=== PATIENT | male | born 1945 | race African-American/Black ===

== ENCOUNTER 2017-03-17 06:08 | Emergency (ER) | payer MEDICARE, BC ==
[~2017-03-17] VITALS: Ht 177.8 cm; Wt 83.5 kg
[2017-03-17 06:19] VITALS: BP 187/86
[2017-03-17] MEDS ORDERED: LIDOCAINE 2% JELLY 6ML IN APPLICATOR. MM ONE (06:30)
--- NOTE | 2017-03-17 06:35 | ED.ADGEN ---
Adult General Chief Complaint Chief Complaint: URINARY RETENTION HPI HPI Patient is a 71 year old man, with history of enlarged prostate who takes Flomax daily, with a previous episode of urinary retention 2 years ago that required Mcmullen catheter placement and follow-up with urology [facility], who presents to the emergency department with complaint of urinary retention. Denies any preceding hematuria or dysuria. No discharge or drainage. No pain in the penis. Patient states that his last void was at 12:30 last night, he states he is unable to go since that time, with only "a few drops". Patient complaining of abdominal pain and distention, denies any back pain, any fevers, any chills, any injuries, any weakness in this or tingling, this is last bowel was yesterday and was normal. No nausea or vomiting. Denies any other medical problems or complaints. No recent travel or surgery, no swelling extremities. No shortness of breath or chest pain. Review of Systems Review of Systems Constitutional: Denies fever or chills. [] Eyes: Denies change in visual acuity. [] HENT: Denies nasal congestion or sore throat. [] Respiratory: Denies cough or shortness of breath. [] Cardiovascular: Denies chest pain or edema. [] GI: Denies nausea, vomiting, bloody stools or diarrhea. [] Abdominal pain and distention. : Denies dysuria. Urinary retention. Musculoskeletal: Denies back pain or joint pain. [] Integument: Denies rash. [] Neurologic: Denies headache, focal weakness or sensory changes. [] Endocrine: Denies polyuria or polydipsia. [] Lymphatic: Denies swollen glands. [] Psychiatric: Denies depression or anxiety. [] Current Medications Current Medications Current Medications Medications (Trade) Dose Ordered Sig/Lilibeth Start Time Stop Time Status Last Admin Dose Admin Diazepam (Valium) 5 mg 1X ONCE 03/17/17 07:00 03/17/17 07:01 DC 03/17/17 06:57 5 MG Lidocaine HCl (Glydo (Lidocaine) Jelly) 1 marie 1X ONCE 03/17/17 06:30 03/17/17 06:31 DC 03/17/17 06:30 1 MARIE Allergies Allergies Allergies Coded Allergies Type Severity Reaction Last Updated Verified Penicillins Allergy Unknown 03/17/17 Yes Physical Exam Physical Exam Constitutional: Well developed, well nourished, no acute distress, non-toxic appearance. [] HENT: Normocephalic, atraumatic, bilateral external ears normal, oropharynx moist, no oral exudates, nose normal. [] Eyes: PERRLA, EOMI, conjunctiva normal, no discharge. [] Neck: Normal range of motion, no tenderness, supple, no stridor. [] Cardiovascular:Heart rate regular rhythm, no murmur, S1, S2, rubs or gallops. [] Lungs & Thorax: Bilateral breath sounds clear to auscultation, no wheezing, rhonchi, rales. No chest wall crepitus or tenderness. [] Abdomen: Bowel sounds normal, soft, abdominal distention, with tenderness in the suprapubic region, no masses, no pulsatile masses. [] Skin: Warm, dry, no erythema, no rash. [] Back: No tenderness, no CVA tenderness. [] Extremities: No tenderness, no cyanosis, no clubbing, ROM intact, no edema. [] Neurologic: Alert and oriented X 3, normal motor function, normal sensory function, no focal deficits noted. [] Psychologic: Affect normal, judgement normal, mood normal. [] Bladder scan: 706 mL/bladder. Current Patient Data Vital Signs Vital Signs Date Time Temp Pulse Resp B/P Pulse Ox O2 Delivery O2 Flow Rate FiO2 03/17/17 06:19 98.5 90 16 187/86 97 Room Air 98.5 Lab Values Laboratory Tests Test 03/17/17 06:58 03/17/17 07:15 POC Hemoglobin 16.7g/dL (14-18) POC Hematocrit 49% (37-52) POC Sodium 141mmol/L (135-145) POC Potassium 4.3mmol/L (3.5-5.0) POC Chloride 105mmol/L (98-110) POC Total CO2 24mmol/L (23-32) Anion Gap 17mmol/L (6-14) H POC Blood Urea Nitrogen 10mg/dL (8-26) POC Creatinine 0.8mg/dL (0.5-1.4) Glucose Level 99mg/dL (70-99) POC Ionized Calcium (Faisal) 1.22mmol/L (1.13-1.32) Urine Collection Type U cath Urine Color Yellow Urine Clarity Clear Urine pH 5.5 Urine Specific [place] <=1.005 Urine Protein Negativemg/dL (NEG-TRACE) Urine Glucose (UA) Negativemg/dL (NEG) Urine Ketones (Stick) Negativemg/dL (NEG) Urine Blood Large (NEG) Urine Nitrite Negative (NEG) Urine Bilirubin Negative (NEG) Urine Urobilinogen Dipstick 0.2mg/dL (0.2 mg/dL) Urine Leukocyte Esterase Negative (NEG) Urine RBC 11-20/HPF (0-2) Urine WBC Occ/HPF (0-4) Urine Squamous Epithelial Cells Occ/LPF Urine Bacteria Few/HPF (0-FEW) Urine Mucus Slight/LPF Laboratory Tests 03/17/17 06:58 EKG EKG Not indicated. [] Radiology/Procedures Radiology/Procedures [] Impressions: Bladder scanner: 706 mL in bladder Course & Med Decision Making Course & Med Decision Making Pertinent Labs and Imaging studies reviewed. (See chart for details) Patient does not recall the urologist he saw previously. Noted to have over 700 mL's of urine in the bladder, unsuccessful attempt at voiding in the ED. Urojet applied, initial attempts of Mcmullen catheter with coud failed, patient was given 5 mg of Valium, second attempt with daily was successful. Patient with drainage of over 700 mL of urine, with immediate improvement of his symptoms. I- STAT obtained, revealed a creatinine of 0.8, with a be out of 10, electrolytes within normal limits, hemoglobin of 16.7. Urinalysis revealed small amount of blood and bacteria, patient noted to have blood-tinged urine in Mcmullen bag, likely secondary to placement of catheter. I did speak to nurse for Dr. Bullard, we will initiate the patient on ciprofloxacin, 500 mg twice daily for 7 days, patient also be given a perception for Pyridium, instructed to follow-up with Dr. Bullard, to call the office today schedule an appointment. I did discuss this with the patient, who is in agreement with this plan. He is resting comfortably at this time, we did discuss concerning symptoms that would prompt return to the emergency department. Patient given clear and detailed instructions as stated, discharged home in stable condition with plan as above. Dragon Disclaimer Dragon Disclaimer This electronic medical record was generated, in whole or in part, using a voice recognition dictation system. Departure Impression: Primary Impression: Urinary retention Disposition: HOME, SELF-CARE Condition: IMPROVED Scripts Phenazopyridine Hcl (Pyridium)200 Mg [id number] Mg PO TID #9 TAB Prov:ROSENDA JONES DO 03/17/17 Ciprofloxacin Hcl (Cipro)500 Mg Tablet1 Tab PO BID #14 TAB Prov:ROSENDA JONES DO 03/17/17 ROSNEDA JONES DO Mar 17, 2017 06:35
[2017-03-17] MEDS ORDERED: DIAZEPAM 10 MG/2 ML DISP.SYRIN. IV ONE (07:00)
[2017-03-17 07:23] LABS: POTASSIUM ISTAT 4.3 mmol/L (3.5-5.0)
[2017-03-17 07:35] LABS: BILIRUBIN,URINE NEGATIVE (NEG); GLUCOSE,URINE NEGATIVE (NEG); NITRITE,URINE NEGATIVE (NEG); PH,URINE 5.5; PROTEIN,URINE NEGATIVE (NEG-TRACE); UROBILINOGEN,URINE 0.2 mg/dL (0.2 mg/dL)
[2017-03-17 07:45] LABS: BACTERIA,URINE FEW /HPF (0-FEW); SQUAMOUS EPITHELIAL CELL,UR OCC /LPF; WBC,URINE OCC /HPF (0-4)
[2017-03-17] MEDS ORDERED: CIPR500T94 PO (08:08)
[2017-03-17] MEDS ORDERED: PHEN-318 PO (08:08)
== END 2017-03-17 08:20 | disposition home or self-care (01) ==
LOC: ER 06:08
DX: R33.9 Retention of urine, unspecified (principal); Z88.0 Allergy status to penicillin
CPT/HCPCS: 51702; 80047; 81001; 96374; 99284; J3360

== ENCOUNTER 2017-03-17 18:53 | Emergency (ER) | payer MEDICARE, BC ==
[~2017-03-17] VITALS: Ht 177.8 cm; Wt 83.5 kg
[~2017-03-17 18:53] MED LIST: CIPR500T94 PO; PHEN-318 PO
[2017-03-17] MEDS ORDERED: LIDOCAINE 2% JELLY 6ML IN APPLICATOR. MM ONE (20:15)
[2017-03-17] MEDS ORDERED: DIAZEPAM 10 MG/2 ML DISP.SYRIN. IM ONE (20:15)
--- NOTE | 2017-03-17 20:28 | PHYS DOC ---
Past Medical History Past Medical History: Other Additional Past Medical Histor: enlarged prostate Past Surgical History: No Surgical History Alcohol Use: None Drug Use: None Adult General Chief Complaint Chief Complaint: BLOOD IN URINE HPI HPI Patient is a 71 year old male who presents with hematuria & urinary retention. The patient was seen here this morning, had urinary retention, required placement of odell catheter. Catheter placement was complicated with numerous attempts, ultimately had relief of symptoms & went home with leg bag. This afternoon now having bright red blood to leg bag but only scant amount of urine output, urinating around catheter, now with increased suprapubic discomfort. Denies fevers/chills, nausea, vomiting, flank pain. Denies use of blood thinners. Multiple previous episodes of urinary retention requiring odell placement. Does not currently have a urologist. Review of Systems Review of Systems Constitutional: Denies fever or chills HENT: Denies nasal congestion or sore throat Respiratory: Denies cough or shortness of breath Cardiovascular: Denies chest pain or edema GI: Reports abdominal pain, denies nausea, vomiting, bloody stools or diarrhea : Denies dysuria, reports hematuria and urinary retention Musculoskeletal: Denies back pain or joint pain Integument: Denies rash or skin lesions Neurologic: Denies headache Current Medications Current Medications Current Medications Medications (Trade) Dose Ordered Sig/Lilibeth Start Time Stop Time Status Last Admin Dose Admin Diazepam (Valium) 5 mg 1X ONCE 03/17/17 20:15 03/17/17 20:16 DC 03/17/17 20:23 5 MG Lidocaine HCl (Glydo (Lidocaine) Jelly) 1 marie 1X ONCE 03/17/17 20:15 03/17/17 20:16 DC 03/17/17 20:23 1 MARIE Allergies Allergies Allergies Coded Allergies Type Severity Reaction Last Updated Verified Penicillins Allergy Unknown 03/17/17 Yes Physical Exam Physical Exam Constitutional: Well developed, well nourished, no acute distress, non-toxic appearance. HENT: Normocephalic, atraumatic, bilateral external ears normal, oropharynx moist, nose normal. Eyes: conjunctiva normal, no discharge. Neck: supple, no stridor. Cardiovascular: RRR, no murmurs, no edema. Lungs & Thorax: LCTAB, no wheezing, no respiratory distress. Abdomen: soft, mild suprapubic tenderness without significant distention, no rebound/guarding, no masses or pulsatile masses. : odell with leg bag, small amount of bright red urine in bag Skin: Warm, dry, no erythema, no rash. Back: No CVA tenderness. Extremities: No tenderness, no edema. Neurologic: Alert and oriented X 3, no focal deficits noted. Psychologic: Affect normal, judgement normal, mood normal. Current Patient Data Vital Signs Vital Signs Date Time Temp Pulse Resp B/P Pulse Ox O2 Delivery O2 Flow Rate FiO2 03/17/17 18:55 97.5 110 22 178/72 97 Room Air 97.5 EKG EKG [] Radiology/Procedures Radiology/Procedures PROCEDURE: CT ABDOMEN PELVIS WO CONTRAST Examination: CT of the abdomen pelvis without contrast. HISTORY History of gross hematuria status post catheter placement, urinary retention. COMPARISON None available. TECHNIQUE Axial CT images and presumptive on without contrast. Coronal sagittal reformats were performed. Exposure: One or more of the following dose reduction technique were utilized for this examination: 1. Automated exposure control. 2.Adjustment of MA and /or KV according to patient size. 3. Use of iterative reconstruction technique. Findings : Visualized bibasal lungs grossly appears unremarkable. No evidence of free air identified in the abdomen. The evaluation of the solid organs is limited lack of IV contrast. The evaluation of the bowel is limited lack of oral contrast. There is a 2.5 centimeter hypodensity identified in the left lobe of the liver is difficult data without contrast. The gallbladder is mildly distended. The visualized spleen, adrenal grossly appears unremarkable. No evidence of intrarenal collecting system calculi identified. The visualized pancreas grossly appears unremarkable. The stomach is mildly distended. Small hiatal hernia is identified. The small bowel is nondilated.The visualized appendix grossly appears unremarkable. Feces and gas noted in the colon. Multiple sigmoid colon diverticulosis identified. Moderately distended urinary bladder. There is a large prostate gland identified measuring 9.5 x 9.3 x 7.9 centimeters. A Odell catheter balloon and tip of the Odell catheter is within the prostate likely within the prostatic urethra. Large osteophyte formation identified in the lumbar spine likely due to degeneration. IMPRESSION - The Odell catheter balloon and the distal tip of the Odell catheter are within the prostate likely within the prostatic urethra. The Odell catheter is not within the urinary bladder. Urinary bladder is moderately distended. Small amount of air identified in the urinary bladder. - Sigmoid colon diverticulosis. - Large prostatomegaly - 2.5 centimeter hypodensity identified in the left lobe of the liver is difficult to characterize without contrast could be a cyst or cystic lesion. Electronically signed by: Dutch Sifuentes (Mar 17, 2017 20:39:51) DICTATED and SIGNED BY: DUTCH SIFUENTES MD DATE: 03/17/172038[] Course & Med Decision Making Course & Med Decision Making Pertinent Labs and Imaging studies reviewed. (See chart for details) The patient presents with recurrence of urinary retention. RN unable to flush catheter. Odell removed & replaced with output of 800 ml of red urine. UA already obtained & patient already taking antibiotics. No significant bladder abnormality on CT today. Hematuria likely secondary to traumatic catheterization this morning. He declined labs so unable to recheck Hgb & Cr. Patient feels better after odell placed. Recommend continue antibiotics. Follow up with Dr. Bullard in 2-3 days. Come back for fever, severe abdominal pain or flank pain, diminished urine output, any otherwise worsening condition. Discharged home in stable & improved condition. [] Dragon Disclaimer Dragon Disclaimer This electronic medical record was generated, in whole or in part, using a voice recognition dictation system. Departure Departure Impression: Primary Impression: Urinary retention Additional Impression: Hematuria Disposition: 01 HOME, SELF-CARE Condition: IMPROVED Referrals: NOE BROWN (PCP) DARIO BULLARD DO Patient Instructions: Hematuria, Adult, Urinary Retention, Acute, Male, Easy-to -Read Additional Instructions: You were seen in the emergency department today for urinary retention and blood in your urine. The Odell catheter was replaced and you felt better. The blood is likely from lots of manipulation of your urethra today. Please call Dr. Bullard' s office in the morning to schedule a follow-up appointment. Continue to take antibiotics as prescribed this morning. Return to the emergency department if no output to catheter, severe abdominal pain or flank pain, high fevers, uncontrolled vomiting, any otherwise worsening condition. Problem Qualifiers RUDI JEFFERSON MD Mar 17, 2017 20:28
--- NOTE | 2017-03-17 20:41 | RAD ---
Examination: CT of the abdomen pelvis without contrast. HISTORY History of gross hematuria status post catheter placement, urinary retention. COMPARISON None available. TECHNIQUE Axial CT images and presumptive on without contrast. Coronal sagittal reformats were performed. Exposure: One or more of the following dose reduction technique were utilized for this examination: 1. Automated exposure control. 2.Adjustment of MA and /or KV according to patient size. 3. Use of iterative reconstruction technique. Findings : Visualized bibasal lungs grossly appears unremarkable. No evidence of free air identified in the abdomen. The evaluation of the solid organs is limited lack of IV contrast. The evaluation of the bowel is limited lack of oral contrast. There is a 2.5 centimeter hypodensity identified in the left lobe of the liver is difficult data without contrast. The gallbladder is mildly distended. The visualized spleen, adrenal grossly appears unremarkable. No evidence of intrarenal collecting system calculi identified. The visualized pancreas grossly appears unremarkable. The stomach is mildly distended. Small hiatal hernia is identified. The small bowel is nondilated.The visualized appendix grossly appears unremarkable. Feces and gas noted in the colon. Multiple sigmoid colon diverticulosis identified. Moderately distended urinary bladder. There is a large prostate gland identified measuring 9.5 x 9.3 x 7.9 centimeters. A Mcmullen catheter balloon and tip of the Mcmullen catheter is within the prostate likely within the prostatic urethra. Large osteophyte formation identified in the lumbar spine likely due to degeneration. IMPRESSION - The Mcmullen catheter balloon and the distal tip of the Mcmullen catheter are within the prostate likely within the prostatic urethra. The Mcmullen catheter is not within the urinary bladder. Urinary bladder is moderately distended. Small amount of air identified in the urinary bladder. - Sigmoid colon diverticulosis. - Large prostatomegaly - 2.5 centimeter hypodensity identified in the left lobe of the liver is difficult to characterize without contrast could be a cyst or cystic lesion. Electronically signed by: Dutch Sifuentes (Mar 17, 2017 20:39:51)
[2017-03-17 21:00] VITALS: BP 154/72
== END 2017-03-17 21:40 | disposition home or self-care (01) ==
LOC: ER 18:53
DX: R31.9 Hematuria, unspecified (principal); R33.9 Retention of urine, unspecified; N40.0 Benign prostatic hyperplasia without lower urinary tract symptoms; Z88.0 Allergy status to penicillin
CPT/HCPCS: 51702; 74176; 96372; 99284; J3360

== ENCOUNTER 2017-11-14 06:57 | Emergency (ER) | payer MEDICARE, BC ==
[2017-11-14 08:22] LABS: BILIRUBIN,URINE NEGATIVE (NEG); GLUCOSE,URINE NEGATIVE (NEG); NITRITE,URINE NEGATIVE (NEG); PH,URINE 5.5; PROTEIN,URINE NEGATIVE (NEG-TRACE); UROBILINOGEN,URINE 0.2 mg/dL (0.2 mg/dL)
[2017-11-14 08:47] LABS: BACTERIA,URINE 0 /HPF (0-FEW); RBC,URINE 20-40 /HPF (0-2); SQUAMOUS EPITHELIAL CELL,UR OCC /LPF; WBC,URINE OCC /HPF (0-4)
== END 2017-11-14 09:54 | disposition home or self-care (01) ==
LOC: ER 06:57
DX: R33.9 Retention of urine, unspecified (principal); R39.15 Urgency of urination; N40.1 Benign prostatic hyperplasia with lower urinary tract symptoms; Z88.0 Allergy status to penicillin
CPT/HCPCS: 51702; 81001; 99284-25

== ENCOUNTER 2017-12-01 10:02 | Emergency (ER) | payer MEDICARE, BC ==
[2017-12-01 11:32] LABS: BILIRUBIN,URINE NEGATIVE (NEG); CLARITY,URINE CLEAR; COLOR,URINE YELLOW; GLUCOSE,URINE NEGATIVE (NEG); NITRITE,URINE NEGATIVE (NEG); PH,URINE 5.5; PROTEIN,URINE NEGATIVE (NEG-TRACE); UROBILINOGEN,URINE 0.2 mg/dL (0.2 mg/dL)
[2017-12-01 11:40] LABS: RBC,URINE >40 /HPF (0-2); SQUAMOUS EPITHELIAL CELL,UR OCC /LPF
[2017-12-01 11:41] LABS: BACTERIA,URINE FEW /HPF (0-FEW)
== END 2017-12-01 11:54 | disposition home or self-care (01) ==
LOC: ER 10:02
DX: N39.0 Urinary tract infection, site not specified (principal); N40.0 Benign prostatic hyperplasia without lower urinary tract symptoms; Z88.0 Allergy status to penicillin
CPT/HCPCS: 81001; 99283

== ENCOUNTER 2017-12-04 12:18 | Emergency (ER) | payer MEDICARE, BC ==
[2017-12-04 13:19] LABS: BILIRUBIN,URINE NEGATIVE (NEG); CLARITY,URINE CLEAR; COLOR,URINE YELLOW; GLUCOSE,URINE NEGATIVE (NEG); NITRITE,URINE NEGATIVE (NEG); PH,URINE 5.5; PROTEIN,URINE NEGATIVE (NEG-TRACE); UROBILINOGEN,URINE 0.2 mg/dL (0.2 mg/dL)
[2017-12-04 13:20] LABS: BACTERIA,URINE 0 /HPF (0-FEW); WBC,URINE 0 /HPF (0-4)
== END 2017-12-04 13:40 | disposition home or self-care (01) ==
LOC: ER 12:18
DX: R33.9 Retention of urine, unspecified (principal); Z88.0 Allergy status to penicillin; R10.30 Lower abdominal pain, unspecified
CPT/HCPCS: 51702; 81001; 99284-25

== ENCOUNTER 2018-01-04 16:10 | Emergency (ER) | payer MEDICARE, BC ==
[2018-01-04 18:15] LABS: BILIRUBIN,URINE NEGATIVE (NEG); CLARITY,URINE CLEAR; COLOR,URINE YELLOW; GLUCOSE,URINE NEGATIVE (NEG); NITRITE,URINE NEGATIVE (NEG); PH,URINE 6.5; PROTEIN,URINE NEGATIVE (NEG-TRACE); UROBILINOGEN,URINE 0.2 mg/dL (0.2 mg/dL)
[2018-01-04 18:21] LABS: AGAP ISTAT 15 mmol/L (6-14); BUN ISTAT 8 mg/dL (8-26); CHLORIDE ISTAT 103 mmol/L (98-110); CREATININE ISTAT 0.9 mg/dL (0.5-1.4); GLUCOSE ISTAT 127 mg/dL (70-99); HEMATOCRIT ISTAT 47 % (37-52); ION CA ISTAT 1.24 mmol/L (1.13-1.32); POTASSIUM ISTAT 3.8 mmol/L (3.5-5.0); SODIUM ISTAT 140 mmol/L (135-145); TOT CO2 ISTAT 26 mmol/L (23-32)
[2018-01-04 18:40] LABS: BACTERIA,URINE MODERATE /HPF (0-FEW); RBC,URINE 20-40 /HPF (0-2); WBC,URINE RARE /HPF (0-4)
== END 2018-01-04 19:05 | disposition home or self-care (01) ==
LOC: ER 16:10
DX: R33.9 Retention of urine, unspecified (principal); F17.200 Nicotine dependence, unspecified, uncomplicated; Z88.0 Allergy status to penicillin
CPT/HCPCS: 51702; 80047; 81001; 85014; 85018; 87086; 87186; 99284-25